=== PATIENT | male | born 1950 | race Caucasian/White ===

== ENCOUNTER → 2020-02-12 | Outpatient (CLI) | payer MEDICARE | END | disposition home or self-care (01) | LOC: CFH 16:08 | PROVIDERS: ATTEND Family Medicine | DX: K57.30 Diverticulosis of large intestine without perforation or abscess without bleeding (principal); K80.20 Calculus of gallbladder without cholecystitis without obstruction; M16.11 Unilateral primary osteoarthritis, right hip | CPT/HCPCS: 74176 ==

== ENCOUNTER → 2020-03-23 | Outpatient (CLI) | payer MEDICARE ==
[~2020-03-23] MED LIST: ATOR20TA37 PO; LISI1TAB23 PO
[2020-03-23 16:21] LABS: BASOPHILS % (AUTO) 1 % (0-1); EOSINOPHILS % (AUTO) 4 % (1-7); LYMPHOCYTES % (AUTO) 26 % (22-44); MEAN CORPUSCULAR HEMOGLOBIN 29.8 pg (27.5-34.5); MEAN CORPUSCULAR HGB CONC 34.4 g/dL (33.2-36.2); MEAN PLATELET VOLUME 8.2 fL (7.4-10.4); MONOCYTES % (AUTO) 9 % (2-9); NEUTROPHILS % (AUTO) 61 % (42-75); PLATELET COUNT 242 x10^3/uL (130-400); RED BLOOD COUNT 5.35 x10^6/uL (4.38-5.82); RED CELL DISTRIBUTION WIDTH 12.8 % (9.4-14.8)
[2020-03-23 16:27] LABS: MD NO
[2020-03-23 16:31] LABS: INTERNATIONAL NORMALIZED RATIO 0.96 (0.93-1.1); PROTHROMBIN TIME 10.2 Seconds (9.6-11.5)
[2020-03-23 16:34] LABS: CALCIUM 9.2 mg/dL (8.5-10.1)
[2020-03-23 16:38] LABS: ALANINE AMINOTRANSFERASE 36 U/L (12-78); ALKALINE PHOSPHATASE 83 U/L (45-117); BILIRUBIN,TOTAL 0.4 mg/dL (0.2-1.0); CREATININE 1.03 mg/dL (0.7-1.3)
[2020-03-23 16:43] LABS: CHLORIDE 104 mmol/L (98-107)
[2020-03-23 16:46] LABS: ANION GAP 4 mmol/L (5-15)
== END | disposition home or self-care (01) ==
LOC: STAR 15:05
PROVIDERS: ATTEND Orthopaedic Surgery
DX: Z01.812 Encounter for preprocedural laboratory examination (principal); Z20.828 Contact with and (suspected) exposure to other viral communicable diseases; R94.31 Abnormal electrocardiogram [ECG] [EKG]; M25.551 Pain in right hip; M16.11 Unilateral primary osteoarthritis, right hip
CPT/HCPCS: 80053; 83036; 85025; 85610; 85730; 87081; 87635; 87806; 93005; G0475

== ENCOUNTER 2020-03-29 09:53 | Observation (INO) | payer MEDICARE ==
[~2020-03-29] VITALS: Ht 177.8 cm; Wt 100.1 kg
[~2020-03-29 09:53] MED LIST changes: +EPINEPHRINE 1 MG/ML, 1ML ONE; +FENTANYL PF 250 MCG/5ML ONE; +KETOROLAC 60 MG/2 ML ONE; +MIDAZOLAM 1 MG/ML, 2ML ONE; +ROPIvacaine/PF 0.2%, 20 ML ONE; +SODIUM CHLORIDE 0.9% 50 ML ONE; +TRANEXAMIC ACID 100 MG/ML, 10ML ONE; +VANCOMYCIN 1,000 MG ONE
[2020-03-29] MEDS ORDERED: LACTATED RINGERS 1,000 ML IV SCH (10:30)
[2020-03-29] MEDS ORDERED: GABAPENTIN 300 MG CAPSULE PO ONE (10:30)
[2020-03-29] MEDS ORDERED: CHLORHEXIDINE 15 ML UDC MM ONE (10:30)
[2020-03-29] MEDS ORDERED: ACETAMINOPHEN 500 MG TABLET PO ONE (10:30)
[2020-03-29 10:34] VITALS: BP 130/93
[2020-03-29] MEDS ORDERED: PHENYLEPHRINE 10 MG/ML ONE (12:17)
[2020-03-29] MEDS ORDERED: DEXAMETHASONE 4 MG/ML, 1ML ONE (12:17)
[2020-03-29] MEDS ORDERED: CEFAZOLIN 1,000 MG ONE (12:17)
[2020-03-29] MEDS ORDERED: PROMETHAZINE 25 MG/ML, 1ML IVPush PRN (12:30)
[2020-03-29] MEDS ORDERED: DIPHENHYDRAMINE 50 MG CAPSULE PO PRN (12:30)
[2020-03-29] MEDS ORDERED: OXYcodone IR 5MG TABLET PO PRN ×2 (12:30→18:00)
[2020-03-29] MEDS: KETOROLAC 30 MG/1 ML IV SCH ×2 (12:30→23:49)
[2020-03-29] MEDS ORDERED: hydrALAzine 20 MG/ML, 1ML IV PRN (12:30)
[2020-03-29] MEDS ORDERED: ALUMINUM/MAG/SIMETHICONE 30 ML UDC PO PRN (12:30)
[2020-03-29] MEDS ORDERED: CEFAZOLIN PMX 1GM/50ML 50 ML IVPB SCH (12:30)
[2020-03-29] MEDS ORDERED: DIPHENHYDRAMINE 50 MG/ML, 1ML IVPush PRN (12:30)
[2020-03-29] MEDS ORDERED: ACETAMINOPHEN 650 MG/20.3 ML UDC PO PRN (12:30)
[2020-03-29] MEDS ORDERED: SENNA/DOCUSATE TABLET PO PRN (12:30)
[2020-03-29] MEDS ORDERED: OXYcodone 5 MG/5 ML ORAL.SOL UDC PO PRN (12:30)
[2020-03-29] MEDS ORDERED: MAGNESIUM HYDROXIDE 8%, 30ML UDC PO PRN (12:30)
[2020-03-29] MEDS ORDERED: LABETALOL 5MG/ML, 20ML IV PRN (12:30)
[2020-03-29] MEDS ORDERED: MEPERIDINE/PF 25MG/0.5ML IVPush PRN (12:30)
[2020-03-29] MEDS ORDERED: ONDANSETRON 2MG/ML, 2ML IVPush PRN (12:30)
[2020-03-29] MEDS ORDERED: PSYLLIUM PACKET PO PRN (12:30)
[2020-03-29] MEDS ORDERED: HYDROmorphone 1 MG/ML, 1ML INJ IVPush PRN ×2 (12:30)
[2020-03-29] MEDS ORDERED: FENTANYL PF 100 MCG/2ML IV PRN (12:30)
[2020-03-29] MEDS ORDERED: morphine SULFATE 10 MG/ML, 1ML IVPush PRN (12:30)
[2020-03-29] MEDS ORDERED: ONDANSETRON 4 MG TABLET PO PRN (12:30)
[2020-03-29] MEDS ORDERED: ACETAMINOPHEN 325 MG TABLET PO PRN (12:30)
[2020-03-29] MEDS ORDERED: POLYETHYLENE GLYCOL 17 GM PACKET PO PRN (12:30)
[2020-03-29] MEDS ORDERED: PROPOFOL 10 MG/ML, 20ML ONE (12:55)
[2020-03-29] MEDS ORDERED: ONDANSETRON 2MG/ML, 2ML ONE ×2 (12:55→15:29)
[2020-03-29] MEDS ORDERED: ROCURONIUM 10MG/ML,5ML ONE (12:55)
[2020-03-29] MEDS ORDERED: SUGAMMADEX 200 MG/2 ML IVPush ONE (12:55)
[2020-03-29] MEDS ORDERED: VASOPRESSIN 20 UNIT/ML, 1ML ONE (12:56)
[2020-03-29] MEDS ORDERED: EPINEPHRINE 1 MG/ML, 1ML ONE (12:56)
[2020-03-29] MEDS ORDERED: EPHEDRINE 50 MG/ML, 1ML ONE (13:22)
[2020-03-29] MEDS ORDERED: TRANEXAMIC ACID 1,000 MG in SODIUM CHLORIDE 0.9% 100 ML IVPB ONE (14:00)
[2020-03-29] MEDS ORDERED: OXYcodone 5 MG/5 ML ORAL.SOL UDC ONE (14:25)
[2020-03-29] MEDS ORDERED: FENTANYL PF 100 MCG/2ML ONE (14:54)
[2020-03-29] MEDS ORDERED: PROMETHAZINE 25 MG/ML, 1ML ONE (14:54)
[2020-03-29] MEDS: POTASSIUM CHLORIDE 20 MEQ in D5%-0.45% NACL 1,000 ML IV SCH (19:00)
[2020-03-29] MEDS ORDERED: ASPIRIN 81 MG TABLET EC PO ONE (19:30)
[2020-03-29 20:00] VITALS: BP 133/86
[2020-03-29] MEDS ORDERED: ATORVASTATIN 20 MG TABLET PO SCH (21:00)
[2020-03-29] MEDS: DOCUSATE 100 MG CAPSULE PO SCH (23:46)
[2020-03-29] MEDS: CEFAZOLIN PMX 1GM/50ML 50 ML IVPB SCH (23:49)
[2020-03-30 03:48] VITALS: BP 95/58
[2020-03-30] MEDS: POTASSIUM CHLORIDE 20 MEQ in D5%-0.45% NACL 1,000 ML IV SCH (05:06)
[2020-03-30] MEDS ORDERED: DEXAMETHASONE 4 MG/ML, 1ML IVPush SCH (06:00)
[2020-03-30] MEDS ORDERED: DEXAMETHASONE 4 MG/ML, 1ML IVPush ONE (06:30)
[2020-03-30 07:40] VITALS: BP 108/67
[2020-03-30] MEDS: KETOROLAC 30 MG/1 ML IV SCH (07:45)
[2020-03-30] MEDS: CEFAZOLIN PMX 1GM/50ML 50 ML IVPB SCH (08:44)
[2020-03-30] MEDS: DOCUSATE 100 MG CAPSULE PO SCH (08:46)
[2020-03-30] MEDS ORDERED: KETOROLAC 30 MG/1 ML ONE (08:51)
[2020-03-30] MEDS ORDERED: HYDROCHLOROTHIAZIDE 12.5 MG CAPSULE PO SCH (09:00)
[2020-03-30] MEDS ORDERED: ASPIRIN 81 MG TABLET EC PO SCH (09:00)
[2020-03-30] MEDS ORDERED: TAMSULOSIN 0.4 MG CAP.ER.24H PO SCH (09:00)
[2020-03-30] MEDS ORDERED: LISINOPRIL 10 MG TABLET PO SCH (09:00)
== END 2020-03-30 10:32 | disposition home or self-care (01) ==
LOC: OUT 09:53 → 4NE 18:56 → 3N 19:38 → 4NE 20:00 → DCLOUNGE 03-30 10:24
PROVIDERS: ADMIT Orthopaedic Surgery; ATTEND Orthopaedic Surgery
DX: M16.11 Unilateral primary osteoarthritis, right hip (principal); I10 Essential (primary) hypertension; E78.00 Pure hypercholesterolemia, unspecified; E78.2 Mixed hyperlipidemia; R01.1 Cardiac murmur, unspecified; M21.70 Unequal limb length (acquired), unspecified site; I95.81 Postprocedural hypotension; Z79.899 Other long term (current) drug therapy
CPT/HCPCS: 27130; 36415; 72170; 85014; 85018; 86850; 86900; 96365; 96366; 96375; 96376; 97110; 97162; 97530; C1713; C1776; G0378; J0171; J0690; J1100; J1885; J2250; J2370; J2405; J2550; J2704; J2795; J3010; J3370; J7120